=== PATIENT | male | born 1940 | race Caucasian/White ===

== ENCOUNTER 2022-01-29 20:04 | Observation (INO) | payer MEDICARE, SELFPAY ==
--- NOTE | ~2022-01-29 | XR_ITS ---
EXAMINATION: XR chest 1V portable INDICATION: Cough TECHNIQUE: Portable AP chest at 1128 hours COMPARISON: 11/19/2017 FINDINGS: The lungs are free of acute opacities. No pleural effusion or pneumothorax. The cardiomedia stinal silhouette is normal. IMPRESSION: 1. No acute cardiopulmonary abnormality. Reviewed, dictated and finalized at location B. K PITCHER
--- NOTE | ~2022-01-29 | XR_ITS ---
EXAMINATION: XR chest 1V portable INDICATION: Shortness of breath TECHNIQUE: Portable AP chest at 1035 hours COMPARISON: 01/29/2022 FINDINGS: The lungs are free of acute opacities. No pleural effusion or pneumothorax. The heart size is normal. IMPRESSION: 1. No acute cardiopulmonary abnormality. Reviewed, dictated and finalized at location B. OGY TECHNICIAN
--- NOTE | ~2022-01-29 | CT_ITS ---
EXAMINATION: CT facial bones w con DATE: 01/30/2022 00:53 INDICATION: Facial abscess. TECHNIQUE: Computed tomography (CT) of the facial bones and maxillofacial region was performed with 7 5 mL Omnipaque 350 intravenous contrast. Automated exposure control and iterative reconstruction tech Search Initiatives were employed. The dose-length product was 578.14 mGy-cm. COMPARISON: Sinuses CT 04/10/2013 FINDINGS: There is plaque in the proximal internal carotid arteries with 0% stenosis relative to norm al distal artery lumen diameters. There is extensive mucosal thickening in the paranasal sinuses. The re is dehiscence of the anterior boland of the maxillary sinuses, which is chronic and may be from rosina or surgery. There are chronic erosions of many of the sinus septa. There is thickening and sclerosis of the boland of the frontal, sphenoid, and maxillary sinuses. The mastoid air cells are normal. The o rbits are normal. There is extensive dental disease. There is right face soft tissue swelling. There is severe cervical spondylosis. IMPRESSION: 1. Extensive chronic sinusitis, similar in severity to 04/10/2013. 2. Extensive dental disease. 3. Right face soft tissue swelling. Reviewed, dictated and finalized at location A. ADJUSTER
[2022-01-29 20:07] VITALS: BP 159/99; PULSE 116; RESP 20; TEMP 37.2; O2SAT 95
--- NOTE | 2022-01-29 23:12 | ECG_ITS ---
Measurements Intervals [place] Rate: 94 P: 63 NH: 235 QRS: -12 QRSD: 103 T: 84 QT: 301 QTc: 376 Interpretive Statements SINUS RHYTHM WITH FIRST DEGREE AV BLOCK ANTEROSEPTAL INFARCT, AGE INDETERMINATE INFERIOR INFARCT, AGE INDETERMINATE BORDERLINE ST-T WAVE ABNORMALITY- HIGH LATERAL LEADS BASELINE ARTIFACT- I, II, AVR, AVF, V3, V5-V6 ABNORMAL ECG NO PREVIOUS ECG AVAILABLE FOR COMPARISON Electronically Signed On 01-30-2022 6:25:24 RESIDENTIAL CARPENTER by Shaun Davis D.O.
[2022-01-29 23:41] LABS: Basophils Percent Auto 0.5 % (0.2-1.2); Eosinophils Percent Auto 0.3 % (0-4.4); Hematocrit 47.6 % (42.0-52.0); Hemoglobin 15.4 g/dL (14.0-18.0); Immature Granulocyte Absolute 0.02 K/mm3 (0.00-0.031); Immature Granulocyte Percent A 0.3 % (0-0.5); Lymphocytes Absolute Auto 0.46 K/mm3 (0.9-3.2); Lymphocytes Percent Auto 7.2 % (18.3-44.2); Mean Corpuscular HGB Conc 32.4 g/dl (32-36); Mean Corpuscular Hemoglobin 29.5 pg (26-34); Mean Corpuscular Volume 91.2 fl (80-100); Mean Platelet Volume 10.2 fl (7.4-10.4); Monocytes Absolute Auto 0.9 K/mm3 (0.1-0.6); Monocytes Percent Auto 13.6 % (2.6-8.5); Neutrophils Percent Auto 78.1 % (45.5-73.1); Platelet Count Result 269 k/mm3 (150-375); Red Blood Count 5.22 M/mm3 (4.6-6.20); Red Cell Distribution Width 14.5 % (11.5-14.5); White Blood Count 6.4 K/mm3 (4.5-10.0)
[2022-01-29] MEDS: ACETAMINOPHEN 500 MG TABLET 1000 MG PO (23:48)
--- NOTE | 2022-01-29 23:51 | ED.GENADULT ---
HPI - General Adult General Chief complaint: Dental/Oral Stated complaint: requesting iv antibx for dental abcess Time Seen by Provider: 01/29/22 22:25 History of Present Illness HPI narrative: This is a 81-year-old male presenting ED with a dental abscess. Patient has had swelling over the right side of his face for the last 2-3 days. He had been taking azithromycin and prednisone for a sinus infection. He is supposed to go to a surgeon tomorrow however he was told that they cannot do surgery well he has active infection of his face. He was sent to the hospital to get IV antibiotics. Patient denies difficulty breathing or for sensation of throat closure. he denies fever, chills, nausea vomiting or diarrhea. Related Data Allergies Allergy/AdvReac Type Severity Reaction Status Date / Time NSAIDS (Non-Steroidal Allergy Intermediate SOB Verified 01/29/22 20:10 Anti-Inflamma aspirin Allergy Unknown Bradycardia Verified 01/29/22 20:10 ibuprofen Allergy Unknown Bradycardia Verified 01/29/22 20:10 latex Allergy Unknown Unknown Verified 01/29/22 20:10 naproxen Allergy Unknown SOB Verified 01/29/22 20:10 Review of Systems Review of Systems: CONSTITUTIONAL: Denies night sweats. EYES: No eye pain ENT: Denies rhinorrhea CARDIOVASCULAR: Denies palpitations RESPIRATORY: Denies hemoptysis GASTROINTESTINAL: Denies hematemesis GENITOURINARY: Denies hematuria. SKIN: Denies rash MUSCULOSKELETAL: Denies myalgia. NEUROLOGIC: Denies weakness. PSYCHIATRIC: Denies delusions PMFSH Past Medical History Medical History Atherosclerosis of aorta Bladder cancer (~06/24/05) Blood transfusion without reported diagnosis (~2012) Colon polyp Elevated blood pressure reading GI bleed (~2012) Hypothyroidism, unspecified Nasal polyps (~2013) Pure hypercholesterolemia, unspecified Surgical History Surgical History History of colonoscopy (~09/29/11) History of hernia repair (~2014) Family History Family History Mother Carcinoma of colon Family history of malignant neoplasm Father No problems noted. Other Family history of elevated blood lipids No family history of cardiovascular disease Social History Social History Smoking status: Current every day smoker (e-cigarettes) Tobacco type: e-cigarettes/vaping Alcohol intake: never Has the Lack of Transportation Kept You From Medical Appointments or From Getting Medications?: No Within the Past 12 Months, Were You Worried Whether Your Food Would Run Out Before You Got Money to Buy More?: Never True What is Your Housing Situation Today?: I Have Housing Are You Worried That in the Next 2 Months, You May Not Have Your Own Housing to Live In?: No Do You Have Trouble Paying Your Heating Or Electricity Bill?: No Do You Have Trouble Paying For Medicines?: No Are You Currently Unemployed and Looking for Work?: No Highest Level of Education Completed: High School Diploma/GED Do You Have Trouble With Childcare or the Care of a Family Member?: No Exam Narrative: APPEARANCE: No apparent distress. Head: Patient has erythema and swelling with fluctuance over the lip and just medial to the nose. Patient has very poor dentition. EYES: EOMI, NOSE: Atraumatic NECK: Trachea midline RESPIRATORY: No increased rate of breathing CARDIOVASCULAR: RRR, ABDOMINAL: Non-distended MUSCULOSKELETAl: No obvious deformities NEURO: Alert. Moving 4/4 extremities SKIN:: Warm, dry. Normal color PSYCHIATRIC: Normal affect Course Vital Signs Vital signs: Vital Signs Temperature 98.9 F 01/29/22 20:07 Pulse Rate 116 H 01/29/22 20:07 Respiratory Rate 20 01/29/22 20:07 Blood Pressure 159/99 H 01/29/22 20:07 Pulse Oximetry 95 01/29/22 20
[2022-01-29 23:57] LABS: Anion Gap 12 mmol/L (8-16); Blood Urea Nitrogen 16 mg/dL (9-20); Calcium 8.8 mg/dL (8.4-10.2); Carbon Dioxide 28 mmol/L (22-30); Chloride 98 mmol/L (98-107); Estimated Glomerular Filt Rate > 60; Glucose 130 mg/dL (65-110); Potassium 4.2 mmol/L (3.4-5.0); Sodium 138 mmol/L (137-145)
[2022-01-29] MEDS: SODIUM CHLORIDE 0.9% IV 1,000 ML 999 ML IV CONT (23:58)
[2022-01-30] VITALS (9 sets, daily range): BP systolic 113–156; BP diastolic 64–89; PULSE 82–103; RESP 18–98; TEMP 35.9–37.9; O2SAT 18–98; BMI 29.3
[2022-01-30 00:53] LABS: SARS-CoV-2 RNA PCR Negative
[2022-01-30] MEDS: AMPICILLIN SULB 3 GM/NS 100 ML 3 GM/100 ML VIAL IVPB (01:02)
--- NOTE | 2022-01-30 03:51 | ADMGEN ---
This patient, Ascencion Bernabe, was admitted to [facility] Surg Room 316-01. Patient/family oriented to hospital policies and general routines including ID bracelet, bed and alarms, visiting hours, pain management, procedures, bathroom and other care routines, personal items, smoking policy, room service/diet, and visiting hours. Information on how to activate the Rapid Response Team has been discussed. Patient/Family are encouraged to report perceived risks to care and to ask questions if they do not understand what they are told or what they should do.
--- NOTE | 2022-01-30 03:56 | PC.NURSE ---
called x2 no answer at this time.
--- NOTE | 2022-01-30 05:18 | PM.IMHP ---
H&P: HPI History of Present Illness Date/Time: 01/30/22 05:18 Chief Complaint: right face swelling Narrative: This is an 81-year-old male with past medical history significant , hypothyroidism, hypertension, bladder CA. patient presents to the emergency room due to right side of the face swelling, crusting, tenderness, he was in the process of being treated for right maxillary sinusitis with a Z-Russel and Solu pack however patient comes to the emergency room today with worsening significant discomfort. Patient denies any dysphagia, drooling, no fevers, no rigors, no chills, no cough, no sputum production, no nausea, no vomiting, no abdominal pain, no diarrhea. patient is been admitted for further evaluation management and treatment. Review of Systems Review of Systems: Right face swelling, tenderness, crusting, warmth. Constitutional: Constitutional: Denies chills, Denies fever(s) and Denies night sweats Eyes: Eyes: Denies change in vision ENT: Denies dysphagia, Denies vertigo, Denies dizziness, Denies nasal congestion, Denies nasal discharge, Denies nasal obstruction and Denies odynophagia Cardiovascular: Cardiovascular: Denies chest pain, Denies leg edema and Denies dyspnea on exertion Respiratory: Respiratory: Denies cough Gastrointestinal: Gastrointestinal: Denies abdominal pain, Denies dyspepsia, Denies heartburn, Denies diarrhea, Denies nausea and Denies vomiting Genitourinary: Genitourinary: Denies dysuria Musculoskeletal: Musculoskeletal: Denies myalgias and Denies joint swelling Integumentary/Breasts: Skin/Breast: Reports erythema, Reports skin pain, Reports skin swelling and Reports other ( right-side of the face) Neurologic: Denies vertigo, Denies dizziness, Denies focal weakness and Denies Sensory deficit (Neuro) Psychiatric: Psychiatric: Reports no additional psychiatric complaints and Reports as per HPI Endocrine: Endocrine: Denies cold intolerance, Denies flushing, Denies heat intolerance, Denies polyphagia, Denies polydipsia and Denies palpitations Hematologic/Lymphatic: Hematologic/Lymphatic: Reports no additional hematologic/lymphatic complaints and Reports as per HPI Allergic/Immunologic: Allergic/Immunologic: Reports no additional allergic/immunologic complaints and Reports as per HPI PMFSH Past Medical History Medical History Atherosclerosis of aorta Bladder cancer (~06/24/05) Blood transfusion without reported diagnosis (~2012) Colon polyp Elevated blood pressure reading GI bleed (~2012) Hypothyroidism, unspecified Nasal polyps (~2013) Pure hypercholesterolemia, unspecified Surgical History Surgical History History of colonoscopy (~09/29/11) History of hernia repair (~2014) Family History Family History Mother Carcinoma of colon Family history of malignant neoplasm Father No problems noted. Other Family history of elevated blood lipids No family history of cardiovascular disease Social History Social History Smoking status: Current every day smoker Tobacco type: e-cigarettes/vaping Alcohol intake: never Substance use: never Has the Lack of Transportation Kept You From Medical Appointments or From Getting Medications?: No Within the Past 12 Months, Were You Worried Whether Your Food Would Run Out Before You Got Money to Buy More?: Never True What is Your Housing Situation Today?: I Have Housing Are You Worried That in the Next 2 Months, You May Not Have Your Own Housing to Live In?: No Do You Have Trouble Paying Your Heating Or Electricity Bill?: No Do You Have Trouble Paying For Medicines?: No Are You Currently Unemployed and Looking for Work?: No Highest Level of Education Completed: High School Diploma/GED Do You Nixon
[2022-01-30 06:41] LABS: Estimated CRCL calculation 61 ml/min; Estimated Glomerular Filt Rate > 60
[2022-01-30] MEDS: ALBUTEROL SULFATE NEB 2.5 MG/3 ML INH 1.25 MG INHALATION (07:06)
[2022-01-30 08:35] LABS: Glucose Point of Care 161 mg/dl (65-105)
--- NOTE | 2022-01-30 09:36 | PC.NURSE ---
Pt resting per bed. Appears slightly distressed. Coughing at times. Unable to produce sputum. Lung bhakta diminished. O2 sats checked at 98%. Nail beds discolored. Provider notified of findings. O2 sats rechecked per forehead monitor with 98% results. Spouse at bedside. Will continue to monitor.
[2022-01-30 09:59] LABS: Alveolar/Arterial O2 Gradient 133.2 mmHg; Base Excess ABG -0.3 mEq/l (+/-2.0); Carboxyhemoglobin 0.3 % THb (0-2.0); Fractional Inspired Oxygen 36 %; HCO3 ABG 24.5 mEq/l (22.0-26.0); Methemoglobin ABG 0.2 %THb (0-1.5); Oxygen Saturation ABG 95.3 % (95.0-100.0); Oxyhemoglobin 94.6 % THb (90.0-100.0); PCO2 ABG 40.7 mmHg (35.0-45.0); PO2 ABG 76.3 mmHg (80.0-100.0); PO2 FiO2 Ratio Arterial Blood 2.12 %; Reduced Hemoglobin 4.9 %THb (0-5.0); Total Hemoglobin 14.3 g/dL (12.0-18.0); pH ABG 7.398 (7.350-7.450)
[2022-01-30 10:00] LABS: Device NASAL CANNULA; Modified Allen's Test Pass; Site Drawn RIGHT RADIAL
[2022-01-30] MEDS: FLUTICASONE PROPIONATE 0.05% NA SPR 16 GM BTL (*BKC) 1 SPRAY NASAL ×3 (10:31→22:23)
[2022-01-30] MEDS: ENOXAPARIN 40 MG/0.4 ML SYRINGE SUB-Q (10:31)
[2022-01-30 12:31] LABS: Glucose Point of Care 136 mg/dl (65-105)
[2022-01-30 16:52] LABS: Glucose Point of Care 127 mg/dl (65-105)
--- NOTE | 2022-01-30 17:31 | WPDPROCEDUR ---
Procedures Other Procedures Procedure 1: Other Procedure: nasal endoscopy all the consents obtained nose sprayed scope passed through polyps bilaterally some scant mucoid purulence nothing too crazy. Septum relatively midline.
--- NOTE | 2022-01-30 17:33 | WPDCN ---
Assessment and Plan Assessment and plan (1) Sinusitis: Code(s): J32.9 - Chronic sinusitis, unspecified Status: Acute Assessment and Plan: recommended the initiation of steroids this a.m., please start steroids typically Decadron q.8 but any steroid work steroid shrink the polyp stone in fix all the issues. On discharge please have the patient follow-up with me within 2 weeks. As in-patient regimen you continue broad-spectrum, I would do Decadron q.8 for the next 48 hours until the patient's symptoms resolve and Afrin 2 large courts 2 times per day for the next 72 hours. Please start steroids. (2) Dental caries: Code(s): K02.9 - Dental caries, unspecified Status: Acute (3) Cellulitis of face: Code(s): L03.211 - Cellulitis of face Status: Acute (4) Nasal polyps: Code(s): J33.9 - Nasal polyp, unspecified Status: Acute HPI Data of Consult Date/Time: 01/30/22 17:33 Requesting Physician: Digna Godoy MD Primary Care Provider: Shelby Jacobson DO Consult Narrative Narrative: Ascencion Bernabe is a 81 year old male with a history of severe nasal polyposis. Right facial edema recently. CT personally reviewed appears to be some right maxillary sinus dehiscence anteriorly possible odontogenic in etiology contribution to the contribution of both nasal polyps chronic sinus disease and bad teeth. Patient currently not on steroids but on broad-spectrum antibiotics and on Afrin b.i.d. per reports he has improved slightly the past 12 hours. Review of Systems Review of Systems: All systems reviewed & are unremarkable except as noted in HPI and below PMFSH Past Medical History Medical History Atherosclerosis of aorta Bladder cancer (~06/24/05) Blood transfusion without reported diagnosis (~2012) Colon polyp Elevated blood pressure reading GI bleed (~2012) Hypothyroidism, unspecified Nasal polyps (~2013) Pure hypercholesterolemia, unspecified Surgical History Surgical History History of colonoscopy (~09/29/11) History of hernia repair (~2014) Family History Family History Mother Carcinoma of colon Family history of malignant neoplasm Father No problems noted. Other Family history of elevated blood lipids No family history of cardiovascular disease Social History Social History Smoking status: Current every day smoker Tobacco type: e-cigarettes/vaping Alcohol intake: never Substance use: never Has the Lack of Transportation Kept You From Medical Appointments or From Getting Medications?: No Within the Past 12 Months, Were You Worried Whether Your Food Would Run Out Before You Got Money to Buy More?: Never True What is Your Housing Situation Today?: I Have Housing Are You Worried That in the Next 2 Months, You May Not Have Your Own Housing to Live In?: No Do You Have Trouble Paying Your Heating Or Electricity Bill?: No Do You Have Trouble Paying For Medicines?: No Are You Currently Unemployed and Looking for Work?: No Highest Level of Education Completed: High School Diploma/GED Do You Have Trouble With Childcare or the Care of a Family Member?: No Spiritual care concerns: No Meds Home Medications and Allergies Home Medications Medication Instructions Recorded Confirmed Type fluticasone propionate 50 1 spray intranasal Q12H #16 grams 08/16/21 01/30/22 Rx mcg/actuation nasal spray,suspension azithromycin 250 mg tablet 250 mg PO DIRECTED #6 tabs 01/27/22 01/30/22 Rx methylprednisolone 4 mg tablets in See Rx Instructions PO PER PKG DIR 01/27/22 01/30/22 Rx a dose pack (Medrol (Russel)) #21 ea atorvastatin 10 mg tablet 10 mg PO HS 01/30/22 01/30/22 History levothyroxi
--- NOTE | 2022-01-30 19:09 | PM.IMPN ---
Progress Note: A&P Assessment and Plan (1) Nasal polyps: Code(s): J33.9 - Nasal polyp, unspecified Status: Acute (2) Sinusitis: Code(s): J32.9 - Chronic sinusitis, unspecified Status: Acute (3) Dental caries: Code(s): K02.9 - Dental caries, unspecified Status: Acute (4) Cellulitis of face: Code(s): L03.211 - Cellulitis of face Status: Acute (5) Hypertension: Code(s): I10 - Essential (primary) hypertension Status: Acute (6) Diabetes: Code(s): E11.9 - Type 2 diabetes mellitus without complications Status: Acute (7) Overweight (BMI 25.0-29.9): Code(s): E66.3 - Overweight Status: Acute (8) Hypothyroidism, unspecified: Code(s): E03.9 - Hypothyroidism, unspecified Status: Acute Plan 02/09/22 ?admit to regular medical floor ?patient started on vancomycin and Zosyn ?cultures in progress ?supportive care ?ENT consult ?insulin sliding scale as needed ?Accu-Cheks AC and HS follow up rounding note seen by ENT per recs: dexamethasone q8hrs x 48hrs ordered, to shrink the polyp stone in fix all the issues.? pt to follow up w ENT within 2 weeks continue broad-spectrum Afrin 2 large courts 2 times per day for the next 72 hours ORDERS PLACED cont current care Subjective Date/time seen: 01/30/22 19:09 pt seen and counseled not to vape in his room, he complains of pain over R face and nasal discharge Review of Systems Review of Systems: All systems reviewed & are unremarkable except as noted in HPI and below Exam Narrative: GEN: NAD, AAOx3 cooperative HEENT: NCAT, MMM, EOMI Neck: no JVD Heart: S1S2 RRR Lungs: CTA B/l Objective Data Vital Signs Vital Signs: Vital Signs - 24 hr 01/29/22 20:07 01/30/22 02:36 01/30/22 02:47 Temperature 98.9 F Pulse Rate 116 H 82 Respiratory Rate 20 18 Blood Pressure 159/99 H 147/89 H 149/81 H Pulse Oximetry 95 96 Oxygen Delivery Room Air 01/30/22 03:54 01/30/22 03:56 01/30/22 06:00 Temperature 97.2 F L 96.7 F L Pulse Rate 88 88 82 Respiratory Rate 98 H 18 18 Blood Pressure 154/84 H 156/80 H Pulse Oximetry 18 L 98 95 Oxygen Delivery 01/30/22 06:50 01/30/22 08:00 Temperature Pulse Rate 103 H 103 H Respiratory Rate 18 Blood Pressure Pulse Oximetry 95 Oxygen Delivery Room Air Intake/Output Intake/Output: Intake & Output 01/28/22 01/29/22 01/29/22 01/30/22 00:59 00:59 23:59 23:59 Intake Total 1150 Balance 1150 Meds/Results Medications: Active Medications Generic Name Dose Route Start Last Admin Trade Name Freq PRN Reason Stop Dose Admin Dexamethasone 4 mg 01/30/22 19:10 Dexamethasone 4 Mg Tablet PO Q8H BIBI Enoxaparin Sodium 40 mg 01/30/22 09:00 01/30/22 10:31 Enoxaparin 40 Mg/0.4 Ml Syringe SUB-Q 40 mg DAILY BIBI Administration Fluticasone Propionate 1 spray 01/30/22 09:00 01/30/22 10:31 Fluticasone Propionate 0.05% Na Spr 16 Gm Btl (*Bkc) NASAL 1 spray Q12HR BIBI Administration Fluticasone Propionate 1 spray 01/30/22 09:00 01/30/22 10:30 Fluticasone Propionate 0.05% Na Spr 16 Gm Btl (*Bkc) NASAL Not Given Q12HR BIBI Piperacillin/Tazobactam/Dextrose 3.375 gm in 50 mls @ 100 mls/hr 01/30/22 12:00 01/30/22 18:42 Zosyn 3.375 Gm/D5w 50ml Pm IVPB 100 mls/hr Q6HR BIBI Administration Vancomycin HCl 1,500 mg in 500 mls @ 333.333 mls/hr 01/31/22 00:00 Vancomycin 1,500 Mg/D5w 500 Ml IVPB Q18H BIBI Levothyroxine Sodium 112 mcg 01/30/22 06:30 01/30/22 10:34 Levothyroxine Sodium 112 Mcg Tablet PO Not Given DAILY@0630 BIBI Levothyroxine Sodium 25 mcg 01/30/22 06:30 01/30/22 10:34 Levothyroxine Sodium 25 Mcg Tablet PO Not Given DAILY@0630 BIBI Oxymetazoline HCl 1 spray 01/30/22 03:01 Oxymetazoline Hcl 0.05% Sae 15 Ml Btl (*Bkc) NASAL Q12HR PRN Congestion Oxymetazoline HCl 1 spray 01/30/22 19:06 Oxymetazoline Hcl 0
[2022-01-30 22:20] LABS: Glucose Point of Care 124 mg/dl (65-105)
[2022-01-30] MEDS: DEXAMETHASONE 4 MG TABLET PO (22:22)
[2022-01-31] MEDS: LEVOTHYROXINE SODIUM 112 MCG TABLET PO (05:32)
[2022-01-31] MEDS: LEVOTHYROXINE SODIUM 25 MCG TABLET PO (05:32)
[2022-01-31] MEDS: DEXAMETHASONE 4 MG TABLET PO ×3 (05:32→21:03)
[2022-01-31 06:00] VITALS: BP 154/79; PULSE 79; RESP 20; TEMP 36.4; O2SAT 95
[2022-01-31 06:11] VITALS: O2SAT 97
[2022-01-31 06:40] LABS: Basophils Percent Auto 0.4 % (0.2-1.2); Eosinophils Percent Auto 0.2 % (0-4.4); Hematocrit 42.1 % (42.0-52.0); Hemoglobin 13.8 g/dL (14.0-18.0); Immature Granulocyte Absolute 0.01 K/mm3 (0.00-0.031); Immature Granulocyte Percent A 0.2 % (0-0.5); Lymphocytes Absolute Auto 0.43 K/mm3 (0.9-3.2); Lymphocytes Percent Auto 8.1 % (18.3-44.2); Mean Corpuscular HGB Conc 32.8 g/dl (32-36); Mean Corpuscular Hemoglobin 29.7 pg (26-34); Mean Corpuscular Volume 90.5 fl (80-100); Mean Platelet Volume 10.4 fl (7.4-10.4); Monocytes Absolute Auto 0.5 K/mm3 (0.1-0.6); Monocytes Percent Auto 9.1 % (2.6-8.5); Neutrophils Absolute Auto 4.4 K/mm3 (1.3-6.7); Platelet Count Result 230 k/mm3 (150-375); Red Blood Count 4.65 M/mm3 (4.6-6.20); Red Cell Distribution Width 14.4 % (11.5-14.5); White Blood Count 5.3 K/mm3 (4.5-10.0)
[2022-01-31 06:47] LABS: Anion Gap 12 mmol/L (8-16); Blood Urea Nitrogen 12 mg/dL (9-20); Calcium 8.7 mg/dL (8.4-10.2); Carbon Dioxide 27 mmol/L (22-30); Chloride 97 mmol/L (98-107); Estimated CRCL calculation 55 ml/min; Estimated Glomerular Filt Rate > 60; Glucose 144 mg/dL (65-110); Potassium 4.1 mmol/L (3.4-5.0); Sodium 136 mmol/L (137-145)
[2022-01-31 07:49] LABS: Glucose Point of Care 139 mg/dl (65-105)
--- NOTE | 2022-01-31 09:57 | PM.IMPN ---
Progress Note: A&P Assessment and Plan (1) Nasal polyps: Code(s): J33.9 - Nasal polyp, unspecified Status: Acute (2) Sinusitis: Code(s): J32.9 - Chronic sinusitis, unspecified Status: Acute (3) Dental caries: Code(s): K02.9 - Dental caries, unspecified Status: Acute (4) Cellulitis of face: Code(s): L03.211 - Cellulitis of face Status: Acute (5) Hypertension: Code(s): I10 - Essential (primary) hypertension Status: Acute (6) Diabetes: Code(s): E11.9 - Type 2 diabetes mellitus without complications Status: Acute (7) Overweight (BMI 25.0-29.9): Code(s): E66.3 - Overweight Status: Acute (8) Hypothyroidism, unspecified: Code(s): E03.9 - Hypothyroidism, unspecified Status: Acute Plan 02/09/22 ?admit to regular medical floor ?patient started on vancomycin and Zosyn ?cultures in progress ?supportive care ?ENT consult ?insulin sliding scale as needed ?Accu-Cheks AC and HS follow up rounding note seen by ENT per recs: dexamethasone q8hrs x 48hrs ordered, to shrink the polyp stone in fix all the issues.? pt to follow up w ENT within 2 weeks continue broad-spectrum Afrin 2 large courts 2 times per day for the next 72 hours ORDERS PLACED cont current care 02/10/22 febrile overnight WBCs WNLs cont abx cont steroids and Afrin x per ENT recs topical Benadryl anticipate dc when afebrile and erythema of R face and pain improving anticipated d/c Subjective Date/time seen: 01/31/22 09:57 pt reports improvement but complaints of itching over L face requests something to treat it Review of Systems Review of Systems: All systems reviewed & are unremarkable except as noted in HPI and below Exam Narrative: GEN: NAD, AAOx3 cooperative HEENT: NCAT, MMM, EOMI skin: R side of central face erythematous edematous w excoriations and eschar no crepitus no enduration Neck: no JVD Heart: S1S2 RRR Lungs: CTA B/l Objective Data Vital Signs Vital Signs: Vital Signs - 24 hr 01/30/22 14:00 01/30/22 22:00 01/31/22 06:00 Temperature 100.2 F H 99.4 F 97.6 F Pulse Rate 100 94 79 Respiratory Rate 20 20 20 Blood Pressure 113/64 149/79 H 154/79 H Pulse Oximetry 97 98 95 Oxygen Delivery 01/31/22 06:11 01/31/22 08:35 Temperature Pulse Rate Respiratory Rate Blood Pressure Pulse Oximetry 97 Oxygen Delivery Room Air Room Air Intake/Output Intake/Output: Intake & Output 01/29/22 01/29/22 01/30/22 01/31/22 00:59 23:59 23:59 23:59 Intake Total 1680 450 Output Total 600 2800 Balance 1080 -2919 Meds/Results Medications: Active Medications Generic Name Dose Route Start Last Admin Trade Name Freq PRN Reason Stop Dose Admin Dexamethasone 4 mg 01/30/22 22:00 01/31/22 05:32 Dexamethasone 4 Mg Tablet PO 4 mg Q8H BIBI Administration Enoxaparin Sodium 40 mg 01/30/22 09:00 01/31/22 08:17 Enoxaparin 40 Mg/0.4 Ml Syringe SUB-Q Not Given DAILY BIBI Fluticasone Propionate 1 spray 01/30/22 09:00 01/31/22 08:15 Fluticasone Propionate 0.05% Na Spr 16 Gm Btl (*Bkc) NASAL Not Given Q12HR BIBI Fluticasone Propionate 1 spray 01/30/22 09:00 01/31/22 08:15 Fluticasone Propionate 0.05% Na Spr 16 Gm Btl (*Bkc) NASAL Not Given Q12HR BIBI Piperacillin/Tazobactam/Dextrose 3.375 gm in 50 mls @ 100 mls/hr 01/30/22 12:00 01/31/22 06:00 Zosyn 3.375 Gm/D5w 50ml Pm IVPB Infused Q6HR BIBI Infusion Vancomycin HCl 1,500 mg in 500 mls @ 333.333 mls/hr 01/31/22 00:00 01/31/22 02:30 Vancomycin 1,500 Mg/D5w 500 Ml IVPB 333.33 mls/hr Q18H BIBI Infusion Levothyroxine Sodium 112 mcg 01/30/22 06:30 01/31/22 05:32 Levothyroxine Sodium 112 Mcg Tablet PO 112 mcg DAILY@0630 [facility] Administration Levothyroxine Sodium 25 mcg 01/30/22 06:30 01/31/22 05:32 Levothyroxine Sodium 25 Mcg Tablet PO 25 mcg DAILY@0630 [facility] Administratio
[2022-01-31 12:04] LABS: Glucose Point of Care 209 mg/dl (65-105)
[2022-01-31 13:52] VITALS: BP 138/74; PULSE 86; RESP 18; TEMP 36.5; O2SAT 99
--- NOTE | 2022-01-31 13:58 | PM.PNGS ---
Progress Note: A&P Assessment and Plan (1) Nasal polyps: Code(s): J33.9 - Nasal polyp, unspecified Status: Acute Plan nasal polyps chronic sinusitis facial cellulitis patient overall appears to be improving once patient improves recommend discharge on something that covers both sinonasal issues possible staph infection of the skin. Clindamycin 300 mg 3-4 times per day for 10 days prednisone taper 20 mg x 3 days 10 mg x 3 days 5 mg x 3 days follow-up with me about 10 days after discharge. Subjective Subjective Date/Time Seen: 01/31/22 13:58 Objective Data Vital Signs Vital Signs: Vital Signs - 24 hr 01/30/22 14:00 01/30/22 22:00 01/31/22 06:00 Temperature 37.9 C H 37.4 C 36.4 C Pulse Rate 100 94 79 Respiratory Rate 20 20 20 Blood Pressure 113/64 149/79 H 154/79 H Pulse Oximetry 97 98 95 Oxygen Delivery 01/31/22 06:11 01/31/22 08:35 01/31/22 13:52 Temperature 36.5 C Pulse Rate 86 Respiratory Rate 18 Blood Pressure 138/74 Pulse Oximetry 97 99 Oxygen Delivery Room Air Room Air Intake/Output Intake/Output: Intake & Output 01/29/22 01/29/22 01/30/22 01/31/22 00:59 23:59 23:59 23:59 Intake Total 1680 962 Output Total 600 2800 Balance 1080 -1834 Meds/Results Medications: Active Medications Generic Name Dose Route Start Last Admin Trade Name Freq PRN Reason Stop Dose Admin Dexamethasone 4 mg 01/30/22 22:00 01/31/22 13:10 Dexamethasone 4 Mg Tablet PO 4 mg Q8H BIBI Administration Enoxaparin Sodium 40 mg 01/30/22 09:00 01/31/22 08:17 Enoxaparin 40 Mg/0.4 Ml Syringe SUB-Q Not Given DAILY BIBI Fluticasone Propionate 1 spray 01/30/22 09:00 01/31/22 08:15 Fluticasone Propionate 0.05% Na Spr 16 Gm Btl (*Bkc) NASAL Not Given Q12HR BIBI Fluticasone Propionate 1 spray 01/30/22 09:00 01/31/22 08:15 Fluticasone Propionate 0.05% Na Spr 16 Gm Btl (*Bkc) NASAL Not Given Q12HR BIBI Piperacillin/Tazobactam/Dextrose 3.375 gm in 50 mls @ 100 mls/hr 01/30/22 12:00 01/31/22 12:08 Zosyn 3.375 Gm/D5w 50ml Pm IVPB Infused Q6HR BIBI Infusion Vancomycin HCl 1,500 mg in 500 mls @ 333.333 mls/hr 01/31/22 00:00 01/31/22 02:30 Vancomycin 1,500 Mg/D5w 500 Ml IVPB 333.33 mls/hr Q18H BIBI Infusion Levothyroxine Sodium 112 mcg 01/30/22 06:30 01/31/22 05:32 Levothyroxine Sodium 112 Mcg Tablet PO 112 mcg DAILY@0630 BIBI Administration Levothyroxine Sodium 25 mcg 01/30/22 06:30 01/31/22 05:32 Levothyroxine Sodium 25 Mcg Tablet PO 25 mcg DAILY@0630 BIBI Administration Oxymetazoline HCl 1 spray 01/30/22 03:01 Oxymetazoline Hcl 0.05% Sae 15 Ml Btl (*Bkc) NASAL Q12HR PRN Congestion Oxymetazoline HCl 1 spray 01/30/22 19:06 Oxymetazoline Hcl 0.05% Sae 15 Ml Btl (*Bkc) NASAL 02/02/22 17:00 Q12HR PRN Congestion Radiology Results: ITS Impressions Face CT 01/30/22 08:50 IMPRESSION: 1. Extensive chronic sinusitis, similar in severity to 04/10/2013. 2. Extensive dental disease. 3. Right face soft tissue swelling. Chest X-Ray 01/30/22 10:48 IMPRESSION: 1. No acute cardiopulmonary abnormality. Labs Labs: Laboratory Results - last 24 hr 01/30/22 01/30/22 01/31/22 16:46 22:17 06:21 WBC 5.3 RBC 4.65 Hgb 13.8 L Hct 42.1 MCV 90.5 MCH 29.7 MCHC 32.8 RDW 14.4 Plt Count 230 MPV 10.4 Immature Gran % (Auto) 0.2 Neut % (Auto) 82.0 H Lymph % (Auto) 8.1 L Sac % (Auto) 9.1 H Eos % (Auto) 0.2 Baso % (Auto) 0.4 Lymph # (Auto) 0.43 L Sac # (Auto) 0.5 Eos # (Auto) 0.0 Baso # (Auto) 0.0 Abs Immat Gran (auto) 0.01 Absolute Neuts (auto) 4.4 Absolute Nucleated RBC 0.0 Nucleated RBC % 0.0 Sodium Potassium Chloride Carbon Dioxide Anion Gap BUN Creatinine Estim Creat Clear Calc Estimated GFR Glucose POC Capillary Glucose 127 H 124 H Calcium Magnesium
[2022-01-31 16:40] LABS: Glucose Point of Care 151 mg/dl (65-105)
[2022-01-31] MEDS: DIPHENHYDRAMINE 1%/ZINC 0.1% CREAM 30 GM TUBE 1 APPLIC TOPICAL (19:10)
[2022-01-31 20:18] LABS: Glucose Point of Care 201 mg/dl (65-105)
[2022-01-31] MEDS: FLUTICASONE PROPIONATE 0.05% NA SPR 16 GM BTL (*BKC) 1 SPRAY NASAL ×2 (21:03)
[2022-01-31 22:00] VITALS: BP 157/88; PULSE 76; RESP 18; TEMP 36.8; O2SAT 98
[2022-02-01] MEDS: DEXAMETHASONE 4 MG TABLET PO ×2 (05:48→13:06)
[2022-02-01] MEDS: LEVOTHYROXINE SODIUM 112 MCG TABLET PO (05:48)
[2022-02-01] MEDS: LEVOTHYROXINE SODIUM 25 MCG TABLET PO (05:49)
[2022-02-01 06:00] VITALS: BP 149/76; PULSE 84; RESP 20; TEMP 36.9; O2SAT 98
[2022-02-01 06:37] LABS: Basophils Percent Auto 0.2 % (0.2-1.2); Eosinophils Percent Auto 0.1 % (0-4.4); Hematocrit 45.3 % (42.0-52.0); Immature Granulocyte Absolute 0.06 K/mm3 (0.00-0.031); Immature Granulocyte Percent A 0.6 % (0-0.5); Lymphocytes Absolute Auto 0.85 K/mm3 (0.9-3.2); Lymphocytes Percent Auto 8.2 % (18.3-44.2); Mean Corpuscular HGB Conc 33.1 g/dl (32-36); Mean Corpuscular Hemoglobin 29.6 pg (26-34); Mean Corpuscular Volume 89.3 fl (80-100); Mean Platelet Volume 10.6 fl (7.4-10.4); Monocytes Absolute Auto 0.8 K/mm3 (0.1-0.6); Monocytes Percent Auto 7.9 % (2.6-8.5); Neutrophils Absolute Auto 8.7 K/mm3 (1.3-6.7); Platelet Count Result 314 k/mm3 (150-375); Red Blood Count 5.07 M/mm3 (4.6-6.20); Red Cell Distribution Width 14.3 % (11.5-14.5); White Blood Count 10.4 K/mm3 (4.5-10.0)
[2022-02-01 06:50] LABS: Anion Gap 11 mmol/L (8-16); Blood Urea Nitrogen 20 mg/dL (9-20); Calcium 9.3 mg/dL (8.4-10.2); Carbon Dioxide 28 mmol/L (22-30); Chloride 97 mmol/L (98-107); Estimated CRCL calculation 51 ml/min; Estimated Glomerular Filt Rate > 60; Glucose 154 mg/dL (65-110); Magnesium 2.3 mg/dL (1.6-2.3); Potassium 4.7 mmol/L (3.4-5.0); Sodium 136 mmol/L (137-145)
[2022-02-01 08:11] LABS: Glucose Point of Care 164 mg/dl (65-105)
[2022-02-01] MEDS: ENOXAPARIN 40 MG/0.4 ML SYRINGE SUB-Q (08:35)
[2022-02-01] MEDS: FLUTICASONE PROPIONATE 0.05% NA SPR 16 GM BTL (*BKC) 1 SPRAY NASAL ×3 (08:35→20:07)
[2022-02-01] MEDS: DIPHENHYDRAMINE 1%/ZINC 0.1% CREAM 30 GM TUBE 1 APPLIC TOPICAL (10:09)
[2022-02-01 11:04] LABS: Vancomycin Trough 11.8 ug/mL (10.0-20.0)
[2022-02-01 11:14] LABS: Glucose Point of Care 149 mg/dl (65-105)
[2022-02-01 13:10] VITALS: BP 119/63; PULSE 99; RESP 20; TEMP 36.6; O2SAT 98
--- NOTE | 2022-02-01 16:17 | PM.IMPN ---
Progress Note: A&P Assessment and Plan (1) Cellulitis of face: Code(s): L03.211 - Cellulitis of face Status: Acute (2) Nasal polyps: Code(s): J33.9 - Nasal polyp, unspecified Status: Acute (3) Sinusitis: Code(s): J32.9 - Chronic sinusitis, unspecified Status: Acute (4) Dental caries: Code(s): K02.9 - Dental caries, unspecified Status: Acute (5) Hypertension: Code(s): I10 - Essential (primary) hypertension Status: Acute (6) Diabetes: Code(s): E11.9 - Type 2 diabetes mellitus without complications Status: Acute (7) Hypothyroidism, unspecified: Code(s): E03.9 - Hypothyroidism, unspecified Status: Acute Plan 01/30/22 ?admit to regular medical floor ?patient started on vancomycin and Zosyn ?cultures in progress ?supportive care ?ENT consult ?insulin sliding scale as needed ?Accu-Cheks AC and HS follow up rounding note seen by ENT per recs: dexamethasone q8hrs x 48hrs ordered, to shrink the polyp stone in fix all the issues.? pt to follow up w ENT within 2 weeks continue broad-spectrum Afrin 2 large courts 2 times per day for the next 72 hours ORDERS PLACED cont current care 01/31/22 febrile overnight WBCs WNLs cont abx cont steroids and Afrin x per ENT recs topical Benadryl anticipate dc when afebrile and erythema of R face and pain improving anticipated d/c 02/01/22 Patient much improved today. Reviewed all pictures. Continue IV antibiotics through today and switch to oral antibiotics in the morning. Patient has completed 48 hours of Decadron and symptoms are improving so will stop steroids. Had a Vaseline like product to the facial scaling. White count up slightly today likely related to the steroids. Home tomorrow. Subjective Date/time seen: 02/01/22 16:17 Interval history: 81yo male wiht HTN and DM here for facal rash. Assuming care. Chart reviewed. Patient states the swelling is much improved in his face. He denies any dysphagia. No pain to the face. The rash is very pruritic. He is requesting discharge. Exam Narrative: AF 97.9 119/63 99 20 98% ra Gen - NARD HEENT - faint erythema and edema to the right cheek. aguirre crusting noted right nasolabial folds. Chest - few basilar crackles, nml RR CV - RRR S1/S2 Abd - Soft, NT/ND, Positive BS Ext - No pedal edema Psych - Nml mood and affect Skin - Warm and dry Objective Data Vital Signs Vital Signs: Vital Signs - 24 hr 01/31/22 20:00 01/31/22 22:00 02/01/22 06:00 Temperature 98.3 F 98.4 F Pulse Rate 76 84 Respiratory Rate 18 20 Blood Pressure 157/88 H 149/76 H Pulse Oximetry 98 98 Oxygen Delivery Room Air 02/01/22 13:10 Temperature 97.9 F Pulse Rate 99 Respiratory Rate 20 Blood Pressure 119/63 Pulse Oximetry 98 Oxygen Delivery Intake/Output Intake/Output: Intake & Output 01/29/22 01/30/22 01/31/22 02/01/22 23:59 23:59 23:59 23:59 Intake Total 1680 3136 562 Output Total 600 3000 Balance 1080 136 562 Meds/Results Medications: Active Medications Generic Name Dose Route Start Last Admin Trade Name Freq PRN Reason Stop Dose Admin Dexamethasone 4 mg 01/30/22 22:00 02/01/22 13:06 Dexamethasone 4 Mg Tablet PO 4 mg Q8H BIBI Administration Enoxaparin Sodium 40 mg 01/30/22 09:00 02/01/22 08:35 Enoxaparin 40 Mg/0.4 Ml Syringe SUB-Q 40 mg DAILY BIBI Administration Fluticasone Propionate 1 spray 01/30/22 09:00 02/01/22 09:39 Fluticasone Propionate 0.05% Na Spr 16 Gm Btl (*Bkc) NASAL Not Given Q12HR BIBI Fluticasone Propionate 1 spray 01/30/22 09:00 02/01/22 08:35 Fluticasone Propionate 0.05% Na Spr 16 Gm Btl (*Bkc) NASAL 1 spray Q12HR BIBI Administration Piperacillin/Tazobactam/Dextrose 3.375 gm in 50 mls @ 100 mls/hr 01/30/22 12:00 02/01/22 12:11 Zosyn 3.375 Gm/D5w 50ml Pm IVPB 100 mls/hr Q6HR BIBI Administration Vancomycin HCl 1
[2022-02-01 16:36] LABS: Glucose Point of Care 178 mg/dl (65-105)
[2022-02-01] MEDS: DOCUSATE SODIUM 100 MG CAPSULE PO (20:07)
[2022-02-01 20:26] LABS: Glucose Point of Care 155 mg/dl (65-105)
[2022-02-01 22:00] VITALS: BP 142/81; PULSE 74; RESP 20; TEMP 36.2; O2SAT 94
--- NOTE | 2022-02-02 00:38 | PC.NURSE ---
Patient is refusing bed alarm. Patient has been educated about risk for falls and injury. Patient agrees to call when ambulating
[2022-02-02 06:00] VITALS: BP 140/82; PULSE 75; RESP 22; TEMP 36.4; O2SAT 97
[2022-02-02] MEDS: LEVOTHYROXINE SODIUM 25 MCG TABLET PO (06:30)
[2022-02-02] MEDS: LEVOTHYROXINE SODIUM 112 MCG TABLET PO (06:30)
[2022-02-02 07:08] LABS: Estimated CRCL calculation 43 ml/min; Estimated Glomerular Filt Rate 53
[2022-02-02 08:00] VITALS: PULSE 75; RESP 22; O2SAT 97
[2022-02-02 08:22] LABS: Glucose Point of Care 153 mg/dl (65-105)
[2022-02-02] MEDS: FLUTICASONE PROPIONATE 0.05% NA SPR 16 GM BTL (*BKC) 1 SPRAY NASAL ×2 (09:27)
[2022-02-02] MEDS: DIPHENHYDRAMINE 1%/ZINC 0.1% CREAM 30 GM TUBE 1 APPLIC TOPICAL (09:27)
[2022-02-02 11:48] LABS: Glucose Point of Care 106 mg/dl (65-105)
--- NOTE | 2022-02-02 13:06 | PM.DS ---
DS: Admitting Diagnosis Discharge Date 02/02/22 Admitting Diagnosis Facial rash DS: Discharge Diagnosis Discharge Diagnosis (1) Cellulitis of face: Code(s): L03.211 - Cellulitis of face Status: Acute (2) Nasal polyps: Code(s): J33.9 - Nasal polyp, unspecified Status: Acute (3) Sinusitis: Code(s): J32.9 - Chronic sinusitis, unspecified Status: Acute (4) Dental caries: Code(s): K02.9 - Dental caries, unspecified Status: Acute (5) Hypertension: Code(s): I10 - Essential (primary) hypertension Status: Acute (6) Diabetes: Code(s): E11.9 - Type 2 diabetes mellitus without complications Status: Acute (7) Hypothyroidism, unspecified: Code(s): E03.9 - Hypothyroidism, unspecified Status: Acute DS: Summary Hospital Course Reason for hospitalization: 81yo male wiht HTN and DM here for facial rash. Please see H&P for details. Hospital Course: Patient presents with right-sided facial swelling and rash. He had been on azithromycin and prednisone for sinus infection. He had low-grade fever initially but that resolved. Chest x-ray was clear. Facial CT showing extensive chronic sinusitis similar in severity from imaging in 2014. He has extensive dental disease and right face soft tissue swelling. Patient was seen by ENT and a nasal endoscopy was performed which showed bilateral polyps and scant mucoid purulence. Patient tolerated the procedure well. He was started on IV antibiotics. COVID swab was negative. White count was normal. He was monitored clinically. He was also started on steroids per ENT recommendation. He had clinical improvement. He has only minimal erythema and marked decrease in the edema at time of discharge. He overall did well was able be discharged home on 02/02/2022 Status at Discharge Cognitive/behavioral status at discharge: stable Time Spent with Patient Time attestation: Total time spent providing and/or coordinating discharge services: 32 minutes Time spent: Greater than 30 minutes Exam Narrative: AF 97.6 140/82 75 22 97% ra Gen - NARD HEENT - faint erythema with minimal edema to the right mid face. Decrease in the crusting noted right nasolabial folds. Chest - CTA bilaterally CV - RRR S1/S2 Abd - Soft, NT/ND, Positive BS Ext - No pedal edema Psych - Nml mood and affect Skin - Warm and dry DS: Data Data Completed and Pending Labs on day of discharge: Labs from last 24 hours 02/02/22 02/02/22 02/02/22 11:35 07:48 06:13 Creatinine 1.30 Estim Creat Clear Calc 43 Estimated GFR 53 L POC Capillary Glucose 106 H 153 H 02/01/22 02/01/22 20:23 16:32 Creatinine Estim Creat Clear Calc Estimated GFR POC Capillary Glucose 155 H 178 H Discharge Plan Discharge Attending physician on discharge: Juma Dupree Consulting providers: Taye Davila Discharging Clinician: Juma Dupree Anticipated Discharge Date/Time: 02/02/22 13:14 Patient Disposition: Home, Self-Care Activity: as tolerated Diet: heart healthy Discharge Instructions: Please complete your antibiotic course even if you are starting to feel well. Contact your doctor or call 911 and come to the Emergency Room if you have fevers, recurrent facial pain or swelling or other worrisome symptoms. Follow-up with your primary care provider in 1-2 weeks. Please call for appointment. Follow-up with Dr Davila in 10 days. Please call for an appointment. Thank you for using [facility] for your health care needs. Patient Instructions: Antibiotic Form, How to Stop Smoking (DC) Stand Alone Forms: General Discharge Information Follow-up/Referrals: Taye Davila MD [Physician] - Call for Appointment Shelby Jacobson DO [Primary Care Provider] - Call for Appointment Discharge Medications: New prednisone 10 mg tablet 10 mg PO DIRECTED Qty: 11 0RF R
== END 2022-02-02 14:40 | disposition home or self-care (01) ==
LOC: ANHED 01-30 03:00 → ANH3MEDSUR 01-30 04:26
PROVIDERS: Hospitalist; Nurse Practitioner Family; Admitting Provider Internal Medicine; Emergency Provider Emergency Medicine; PCP Family Medicine; Visit Provider Internal Medicine
DX: L03.211 Cellulitis of face (principal); J33.9 Nasal polyp, unspecified; J32.9 Chronic sinusitis, unspecified; K02.9 Dental caries, unspecified; I10 Essential (primary) hypertension; E11.9 Type 2 diabetes mellitus without complications; E66.3 Overweight; Z68.29 Body mass index [BMI] 29.0-29.9, adult; E03.9 Hypothyroidism, unspecified; C67.9 Malignant neoplasm of bladder, unspecified; Z20.822 Contact with and (suspected) exposure to COVID-19; E78.00 Pure hypercholesterolemia, unspecified; I70.0 Atherosclerosis of aorta; R00.0 Tachycardia, unspecified; R94.31 Abnormal electrocardiogram [ECG] [EKG]; F17.290 Nicotine dependence, other tobacco product, uncomplicated; Z79.51 Long term (current) use of inhaled steroids; Z79.52 Long term (current) use of systemic steroids; Z79.899 Other long term (current) drug therapy
CPT/HCPCS: 31231; 36415; 36600; 70487; 71045; 80048; 80202; 82375; 82565; 82805; 82948; 83050; 83735; 85025; 93005; 94640; 96361; 96365; 96366; 96367; 96372; 96374; 96376; 99285; A9270; G0378; J0295; J1650; J2543; J3370; J7030; J8540; Q9967; U0003; U0005

== ENCOUNTER 2022-08-09 16:35 | Outpatient (CLI) | payer MEDICARE, SELFPAY ==
--- NOTE | ~2022-08-09 | CT_ITS ---
EXAMINATION: CT sinus wo con DATE: 08/09/2022 17:16 INDICATION: Nasal polyp. TECHNIQUE: Computed tomography (CT) of the paranasal sinuses was performed without intravenous contra st. Iterative reconstruction technique was employed. The dose-length product was 320.99 mGy-cm. COMPARISON: CT maxillofacial 01/30/2022 FINDINGS: There is near complete opacification of the frontal, ethmoid, and maxillary sinuses. There is moderate mucosal thickening in the sphenoid sinuses. There is dehiscence of the anterior boland of the maxillary sinuses. There is thickening and sclerosis and erosions of many of the sinus boland. The re is rightward deviation of the nasal septum. There is lobular mucosal thickening in the nasal cavit y with posterior extension into the nasopharynx on the right. The ostiomeatal units are occluded. IMPRESSION: 1. 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 Reviewed, dictated and finalized at location A. IMPRESSION: 1. 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
== END 2022-08-09 16:36 | disposition home or self-care (01) ==
PROVIDERS: PCP Family Medicine; Visit Provider Otolaryngology
DX: J33.9 Nasal polyp, unspecified (principal); J32.9 Chronic sinusitis, unspecified
CPT/HCPCS: 70486

== ENCOUNTER 2022-09-15 09:31 | Emergency (ER) | payer MEDICARE, SELFPAY ==
--- NOTE | ~2022-09-15 | XR_ITS ---
XR wrist LT min 3V 09/15/2022 09:57 Indication: Left wrist pain Procedure: 4 views left wrist Comparison: No prior studies for comparison. 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 No fracture or traumatic malalignment. Osteopenia. 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 Reviewed, dictated and finalized at location [] Impression: 1: No acute fracture.
--- NOTE | 2022-09-15 09:34 | ED.UPPEXIN ---
HPI - Extremity Injury (Upper) General Chief Complaint: Extremity Problem,Nontraumatic Stated Complaint: Left Wrist Pain Time Seen by Provider: 09/15/22 09:33 Source: patient Mode of arrival: ambulatory Limitations: no limitations History of Present Illness HPI narrative: Patient is 82-year-old male who presents with left wrist pain for a week. Patient denies any trauma or fall. Used heat which made pain worse. Has been taking 's he has hydrocodone for pain. States he needs it evaluated prior to nasal polyp surgery on Sunday. Used a brace yesterday and today with mild relief. Patient has brace on very tightly and some redness is noticed after removing brace. Per patient and redness was not present prior to brace use. Related Data Home Medications Medication Instructions Recorded Confirmed multivit,Ca,min-iron 8 mg-folic 1 tablet PO DAILY 09/14/22 09/15/22 acid 200 mcg-lycopene 600 mcg tablet (Centrum Men) Allergies Allergy/AdvReac Type Severity Reaction Status Date / Time NSAIDS (Non-Steroidal Allergy Intermediate SOB Verified 09/14/22 09:21 Anti-Inflamma aspirin Allergy Unknown Bradycardia Verified 09/14/22 09:21 ibuprofen Allergy Unknown Bradycardia Verified 09/14/22 09:21 latex Allergy Unknown Blister Verified 09/14/22 09:22 naproxen Allergy Unknown SOB Verified 09/14/22 09:21 Review of Systems Review of Systems: All systems reviewed & are unremarkable except as noted in HPI and below Constitutional: Constitutional: Denies body ache(s), Denies chills, Denies fatigue, Denies fever(s), Denies headache(s), Denies malaise and Denies weakness Eyes: Eyes: Denies blurry vision, Denies irritation and Denies loss of vision ENT: Denies otalgia, Denies headache(s), Denies nasal discharge, Denies sinus pain and Denies sore throat Cardiovascular: Cardiovascular: Denies chest pain, Denies irregular heart rhythm and Denies dyspnea Respiratory: Respiratory: Denies dyspnea Gastrointestinal: Gastrointestinal: Denies abdominal pain, Denies melena, Denies hematochezia, Denies diarrhea, Denies nausea and Denies vomiting Musculoskeletal: Musculoskeletal: Denies back pain, Denies myalgias and Reports arthralgias Integumentary/Breasts: Skin/Breast: Denies pruritus and Denies rash Neurologic: Denies headache(s), Denies loss of vision and Denies weakness Psychiatric: Psychiatric: Reports no additional psychiatric complaints Endocrine: Endocrine: Denies fatigue PMFSH Past Medical History Medical History Atherosclerosis of aorta Bladder cancer (~06/24/05) Blood transfusion without reported diagnosis (~2012) Colon polyp Elevated blood pressure reading GI bleed (~2012) Hypothyroidism, unspecified Nasal polyps (~2013) Pure hypercholesterolemia, unspecified Surgical History Surgical History History of colonoscopy (~09/29/11) History of hernia repair (~2014) Family History Family History Mother Carcinoma of colon Family history of malignant neoplasm Father No problems noted. Other Family history of elevated blood lipids No family history of cardiovascular disease Social History Social History Smoking packs per day: 0.5 Smoking cigarettes per day: 10.0 Years smoked: 51 Smoking pack-years: 25.50 Smoking status: Former smoker Tobacco type: cigarettes and e-cigarettes/vaping Smoking end date: 03/26/12 Additional smoking assessment comments: CURRENTLY VAPES Alcohol intake: never Substance use: never Lack of Transportation: No Lack of Food: Never True Current Housing: I Have Housing Concerned About Future Housing: No Difficulty Paying Gas/Electric Bills: No Difficulty Paying for Meds: No Currently Unemployed: No Educatio
[2022-09-15 09:43] VITALS: BP 132/86; PULSE 95; RESP 20; TEMP 37; O2SAT 97
== END 2022-09-15 10:41 | disposition home or self-care (01) ==
PROVIDERS: Emergency Provider Nurse Practitioner Family; PCP Family Medicine
DX: M19.032 Primary osteoarthritis, left wrist (principal); F17.290 Nicotine dependence, other tobacco product, uncomplicated; I70.0 Atherosclerosis of aorta; E03.9 Hypothyroidism, unspecified; E78.00 Pure hypercholesterolemia, unspecified; Z85.51 Personal history of malignant neoplasm of bladder
CPT/HCPCS: 73110; 99213; G0463

== ENCOUNTER 2022-09-18 01:12 | Day surgery (SDC) | payer MEDICARE, SELFPAY ==
--- NOTE | 2022-09-14 09:33 | PC.NURSE ---
Report to the Outpatient Waiting Room, entrance under the green pavilion located off [facility], at time _0730 on date __09/18/22 . Planned Procedure Time: __929 . Time changes happen often and if your time is changed the preop area will call you the afternoon before. - You and your visitor will be asked to self-screen and do not enter if you have any COVID symptoms. - A mask is optional within the hospital at this time. Patients may have clear liquids (water, carbonated beverages, clear teas, apple juice) until 3 hours prior to surgery with a maximum of 20 ounces. - No food from midnight until time of surgery - Infants may have breast milk until 4 hours before surgery, infant formula 6 hours prior to surgery. - Children will be allowed to drink immediately following surgery. If applicable, please bring a bottle or sippy cup to assist with drinking. Juice, water, soda, and popsicles are readily available. For infants on formula, please bring formula the day of surgery. Pacifiers are allowed. Take the following medications with a SIP of water the morning of surgery: __LEVOTHYROXINE DO NOT STOP ANY OF YOUR OTHER PRESCRIPTION MEDICATIONS PRIOR TO SURGERY ?EXCEPT THE FOLLOWING Medications to discontinue per physician ALL VITAMINS 3 DAYS PRE OP.LAST DOSE 09/15/22 Please no make-up, nail bengali, hairspray, perfume, deodorant, or body powder the day of surgery. No jewelry (including any body piercings) or valuables the day of surgery, leave them at home. Please take a shower or bath the night before, or the morning of, surgery with an antibacterial soap. Wear comfortable, loose fitting clothing. Children are encouraged to wear pajamas. - Jewelry must be removed prior to entering the operating room. Rings and piercings that are not removed may be cut off. - The hospital will not accept responsibility for valuables. - Please leave all valuables, including medications, at home the day of surgery. If you are going home after surgery, a licensed putaway driver must drive you home. - NO public transportation without another adult if you receive anesthesia. - We recommend that an adult stay with you for 24 hours following discharge. - We also recommend that you do not drive, make important decision, drink alcoholic beverages, or take any drugs that were not prescribed by your health care provider for at least 24 hours after your discharge time. For Pediatric surgeries, we recommend two adults accompany the child home. Follow any additional instructions given to you from your surgeon. If you or anyone in your household have experienced Covid symptoms in the past week, please notify your surgeon or the nurse liaison at the phone number below for possible testing. Telephone instructions given to __PT'S SABINA and asked if any additional questions and then verbalized understanding. Patient advised to call surgeon office or pre surgery nurse liaison [phone] if any additional questions.
[2022-09-14 09:38] VITALS: BMI 25.7
[2022-09-18] VITALS (11 sets, daily range): BP systolic 111–165; BP diastolic 56–132; PULSE 70–105; RESP 14–20; TEMP 36.4–36.5; O2SAT 94–100
--- NOTE | 2022-09-18 07:17 | PM.IMHP ---
H&P: HPI History of Present Illness Date/Time: 09/18/22 07:17 Chief Complaint: Nasal polyps chronic sinusitis Narrative: plan procedure Review of Systems Review of Systems: All systems reviewed & are unremarkable except as noted in HPI and below [facility] Past Medical History Medical History Atherosclerosis of aorta Bladder cancer (~06/24/05) Blood transfusion without reported diagnosis (~2012) Colon polyp Elevated blood pressure reading GI bleed (~2012) Hypothyroidism, unspecified Nasal polyps (~2013) Pure hypercholesterolemia, unspecified Surgical History Surgical History History of colonoscopy (~09/29/11) History of hernia repair (~2014) Family History Family History Mother Carcinoma of colon Family history of malignant neoplasm Father No problems noted. Other Family history of elevated blood lipids No family history of cardiovascular disease Social History Social History Smoking packs per day: 0.5 Smoking cigarettes per day: 10.0 Years smoked: 51 Smoking pack-years: 25.50 Smoking status: Former smoker Tobacco type: cigarettes and e-cigarettes/vaping Smoking end date: 03/26/12 Additional smoking assessment comments: CURRENTLY VAPES Alcohol intake: never Substance use: never Lack of Transportation: No Lack of Food: Never True Current Housing: I Have Housing Concerned About Future Housing: No Difficulty Paying Gas/Electric Bills: No Difficulty Paying for Meds: No Currently Unemployed: No Education: High School Diploma/GED Difficulty w/ Childcare or Family Care: No Living arrangements: with family Spiritual care concerns: No Meds Home Medications and Allergies Home Medications Medication Instructions Recorded Confirmed Type atorvastatin 10 mg tablet 10 mg PO HS #90 tabs 08/25/22 09/15/22 Rx levothyroxine 137 mcg tablet 137 mcg PO QAM #90 tabs 08/25/22 09/15/22 Rx multivit,Ca,min-iron 8 mg-folic 1 tablet PO DAILY 09/14/22 09/15/22 History acid 200 mcg-lycopene 600 mcg tablet (Centrum Men) prednisone 10 mg tablet 10 mg PO .daily #4 tabs 09/15/22 09/15/22 Rx Allergies Allergy/AdvReac Type Severity Reaction Status Date / Time NSAIDS (Non-Steroidal Allergy Intermediate SOB Verified 09/14/22 09:21 Anti-Inflamma aspirin Allergy Unknown Bradycardia Verified 09/14/22 09:21 ibuprofen Allergy Unknown Bradycardia Verified 09/14/22 09:21 latex Allergy Unknown Blister Verified 09/14/22 09:22 naproxen Allergy Unknown SOB Verified 09/14/22 09:21 Exam Narrative: nasal polyp Assessment and Plan Assessment and plan (1) Nasal polyps: Code(s): J33.9 - Nasal polyp, unspecified Status: Acute Assessment and Plan: plan operating roomimage guided endoscopic bilateral maxillary antrostomies total ethmoidectomies frontal sinusotomies sphenoidotomies all with tissue removal,? as well as polypectomy,. Risks were discussed including bleeding infection damage to surrounding structures need for further procedures total blindness change in vision brain brain damage CSF leak nasal septal perforation regrowth of polyps need for prolonged antibiotic use prolonged steroid use prolonged narcotic use damage to any structure above the clavicles by myself. Damage to any structure during the induction and maintenance of anesthesia. (2) Sinusitis: Code(s): J32.9 - Chronic sinusitis, unspecified Status: Acute
--- NOTE | 2022-09-18 07:20 | WPDHPUPDATE1 ---
History and Physical Update Update Date/Time: 09/18/22 07:20 History and Physical has been reviewed, including an updated exam of the patient. There are NO changes in the patient's condition. Risks, benefits, and alternatives have been discussed and questions answered. Patient agrees to proceed with procedure.
[2022-09-18] MEDS: ACETAMINOPHEN 500 MG TABLET 1000 MG PO (07:53)
[2022-09-18] MEDS: LACTATED RINGERS 1,000 ML 30 ML IV CONT ×2 (08:00→11:35)
--- NOTE | 2022-09-18 08:42 | WPDANESEPPF ---
Anes - Initial Pre Proc Eval Procedure: Operation Date: 09/18/22 09:30 Proposed Procedures p Image Guided Maxillary Antrostomy with Tissue Removal, Bilateral Frontal Sinusotomy, Bilateral Sphenoidotomy with Tissue Removal, Bilateral Nasal Polpectomy - Taye Davila MD Date/Time: 09/18/22 08:42 Surgeon: Taye Davila MD Pre Op Diagnosis: Chr Sinusitis Patient Data Age: 82 Gender: M Height: 1.8 m Weight: 83.5 kg Allergies Allergy/AdvReac Type Severity Reaction Status Date / Time NSAIDS (Non-Steroidal Allergy Intermediate SOB Verified 09/14/22 09:21 Anti-Inflamma aspirin Allergy Unknown Bradycardia Verified 09/14/22 09:21 ibuprofen Allergy Unknown Bradycardia Verified 09/14/22 09:21 latex Allergy Unknown Blister Verified 09/14/22 09:22 naproxen Allergy Unknown SOB Verified 09/14/22 09:21 Home Medications Medication Instructions Recorded Confirmed Type atorvastatin 10 mg tablet 10 mg PO HS #90 tabs 08/25/22 09/15/22 Rx levothyroxine 137 mcg tablet 137 mcg PO QAM #90 tabs 08/25/22 09/15/22 Rx multivit,Ca,min-iron 8 mg-folic 1 tablet PO DAILY 09/14/22 09/15/22 History acid 200 mcg-lycopene 600 mcg tablet (Centrum Men) prednisone 10 mg tablet 10 mg PO .daily #4 tabs 09/15/22 09/15/22 Rx Patient hx anesthesia problems: none Family hx anesthesia problems: none Results Review: All pre-operative results and documents have been reviewed as part of the pre-operative evaluation. [facility] Past Medical History Medical History (Updated 09/18/22 @ 08:43 by Kristopher Lunsford DO) Atherosclerosis of aorta Bladder cancer (~06/24/05) Blood transfusion without reported diagnosis (~2012) Colon polyp Elevated blood pressure reading First degree atrioventricular block GI bleed (~2012) Hypothyroidism, unspecified Nasal polyps (~2013) Pure hypercholesterolemia, unspecified Surgical History Surgical History History of colonoscopy (~09/29/11) History of hernia repair (~2014) Family History Family History Mother Carcinoma of colon Family history of malignant neoplasm Father No problems noted. Other Family history of elevated blood lipids No family history of cardiovascular disease Social History Social History Smoking packs per day: 0.5 Smoking cigarettes per day: 10.0 Years smoked: 51 Smoking pack-years: 25.50 Smoking status: Former smoker Tobacco type: cigarettes and e-cigarettes/vaping Smoking end date: 03/26/12 Additional smoking assessment comments: CURRENTLY VAPES Alcohol intake: never Substance use: never Lack of Transportation: No Lack of Food: Never True Current Housing: I Have Housing Concerned About Future Housing: No Difficulty Paying Gas/Electric Bills: No Difficulty Paying for Meds: No Currently Unemployed: No Education: High School Diploma/GED Difficulty w/ Childcare or Family Care: No Living arrangements: with family Spiritual care concerns: No Anes - Eval Final PreProcedure Day of Procedure 09/18/22 08:42 Patient weight: overweight Heart: regular rate and rhythm Lungs: clear to auscultation Airway: Mallampati scale class III Neurological: alert and oriented Last oral intake: >/= 8 hours ASA classification: III Emergent: no Anesthetic plan: proceed Anesthesia type and monitoring: general ETT and standard monitoring Results Review: All pre-operative results and documents have been reviewed as part of the pre-operative evaluation. Informed Consent: The patient's anesthetic plan and its attendant risks and benefits were discussed with the patient/family/POA. Questions were solicited and answers provided to the satisfaction of the patient/family/POA.
[2022-09-18] MEDS: ceFAZolin 2 GM/D5W 50 ML 2 GM/50 ML BAG IVPB (09:54)
[2022-09-18] MEDS: OXYMETAZOLINE HCL 0.05% NAS 15 ML BTL (*BKC) 1 SPRAY NASAL ×2 (10:31→11:07)
--- NOTE | 2022-09-18 12:03 | W.PM.PROC2 ---
Procedure Note - Detailed Date of Procedure 09/18/22 Surgeon Taye Davila MD Estimated Blood Loss -200.0
[2022-09-18] MEDS: oxyCODONE HCL (*CRX) 5 MG TAB IR PO (13:15)
--- NOTE | 2022-09-18 13:50 | P.OP_ITS ---
Procedure Note - Detailed Date of Procedure 09/18/22 Pre-op Diagnosis Chr Sinusitis Nasal polyp Post-op Diagnosis Same Procedure Performed bilateral image guided maxillary antrostomies with tissue removal bilateral endoscopic total ethmoidectomies bilateral endoscopic image guided frontal sinusotomies with tissue removal placement of propel stents in the bilateral frontal outflow tracks Surgeon Taye Davila MD Anesthesia General Indications see above Findings a polyps throughout everything sphenoids were left intact given minimal disease and patient's main complaint of nasal obstruction Description of Procedure patient identified consent verified in the preoperative holding area. Patient brought back to the operating room. Time-out performed. General anesthesia induced endotracheal tube secured the patient's airway. Patient prepped draped positioned. Procedure confirmed. Second time-out performed. Image guidance initiated was difficult given the patient's inability to flex his neck. Afrin- soaked pledgets placed in bilateral nasal passages for finest then removed. 0 degree scope analyzed image guided microdebrider utilized to remove polyps throughout the nasal passages. Kerrison utilized to perform ethmoidectomy along the skull base opening up the posterior ethmoids are remnant cells bilaterally. Again microdebrider utilized to clean these up. A Heiss level of polyps along the skull base were left given that the image guidance was not completely accurate due to the patient's inability to flex his neck. Maxillary antrostomies widened with backbiter and straight through cut. Rad 60 microdebrider utilized to remove the tissue from the maxillary sinuses. Frontal sinus utilized to locate the frontal outflow tract widened with 70 degree scope image guidance when working as well as Hosemann punch. Red 60 microdebrider then utilized were more firm remove all the polyps in frontal sinuses. Bleeding was controlled with intermittent packing of Afrin-soaked pledgets. Sphenoid sinuses left intact. Propel stents placed in the bilateral frontal outflow tracks no pack on the right left cavity was too large to place any packing blood loss was minimal following the procedure. Total blood loss about 200 cc. I performed all dictated portions of procedure. Care the patient given back to Anesthesiology. No complications. Sphenoid sinuses left intact given the minimal disease burden and overall main concern being nasal obstruction. Estimated Blood Loss -200.0 Drains No Packing Yes ( Nova pack right) Pathology None sent Complications No immediate complications Condition Stable Disposition PACU [facility] Billing Surgery - Charge Forward: Surgery Billing
== END 2022-09-18 13:58 | disposition home or self-care (01) ==
PROVIDERS: PCP Family Medicine; Visit Provider Otolaryngology
PROC: (CPT 31267; principal; 2022-09-18 09:30)
DX: J32.9 Chronic sinusitis, unspecified (principal); J33.9 Nasal polyp, unspecified; E03.9 Hypothyroidism, unspecified; E78.00 Pure hypercholesterolemia, unspecified; F17.290 Nicotine dependence, other tobacco product, uncomplicated
CPT/HCPCS: 31267; 31253; 61782; A9270; C2625; J0330; J0690; J1100; J1170; J2405; J2704; J3010; J7040; J7120